=== PATIENT | female | born 1985 | race Hispanic/Latino ===

== ENCOUNTER 2019-05-05 08:29 | Emergency (ER) | payer OTHER ==
[~2019-05-05] VITALS: Ht 152.4 cm; Wt 54.4 kg
== END 2019-05-05 09:01 | disposition home or self-care (01) ==
LOC: ER 08:29
DX: J01.10 Acute frontal sinusitis, unspecified (principal); J30.2 Other seasonal allergic rhinitis; J02.9 Acute pharyngitis, unspecified
CPT/HCPCS: 99282

== ENCOUNTER 2019-10-18 19:47 | Emergency (ER) | payer SELFPAY ==
[~2019-10-18] VITALS: Ht 152.4 cm; Wt 54.4 kg
[2019-10-18] MEDS ORDERED: IBUPROFEN 600 MG TAB PO ONE (20:33)
--- NOTE | 2019-10-18 20:42 | Diagnostic Imaging Report ---
EXAMINATION: CHEST 2 VIEWS INDICATION: Fever, cough. COMPARISON: None FINDINGS: TUBES and LINES: None. LUNGS: Lungs are well inflated. There is no evidence of pneumonia or pulmonary edema. PLEURA: No pleural effusion or pneumothorax. HEART AND MEDIASTINUM: The cardiomediastinal silhouette is unremarkable. BONES AND SOFT TISSUES: No acute osseous abnormality. UPPER ABDOMEN: No free air under the diaphragm. IMPRESSION: No acute thoracic abnormality. Signed by: Dr. Rose Marie Morales MD on 10/18/2019 8:39 PM
[2019-10-18] MEDS ORDERED: DEXAMETHASONE SOD PHOS 10 MG/1 ML VIAL IM ONE (20:45)
[2019-10-18] MEDS ORDERED: ACETAMINOPHEN/CODEINE ELIX 120-12 MG/5 ML UDC PO ONE (20:45)
[2019-10-18] MEDS ORDERED: PENICILLIN G BENZATHINE LA 1.2 MU TBX IM ONE (21:00)
== END 2019-10-18 21:45 | disposition home or self-care (01) ==
LOC: ER 19:47
DX: J02.0 Streptococcal pharyngitis (principal)
CPT/HCPCS: 71046; J0561; J1100

== ENCOUNTER 2021-03-22 19:14 | Emergency (ER) | payer OTHER ==
[~2021-03-22] VITALS: Ht 152.4 cm; Wt 54.4 kg
[2021-03-22] MEDS ORDERED: DEXAMETHASONE SOD PHOS 10 MG/1 ML VIAL IV ONE (19:30)
[2021-03-22] MEDS ORDERED: DEXAMETHASONE SOD PHOS 10 MG/1 ML VIAL ONE (19:41)
[2021-03-22] MEDS ORDERED: ACETAMIN/BUTALBITAL/CAFFEINE TAB ONE (19:44)
[2021-03-22] MEDS ORDERED: ACETAMIN/BUTALBITAL/CAFFEINE TAB PO ONE (19:45)
[2021-03-22 20:14] LABS: STREPTOCOCCUS GRP A ANTIGEN POSITIVE (NEGATIVE)
[2021-03-22 20:23] LABS: INFLUENZAE A&B ANTIGEN (RAPID) NEGATIVE (NEGATIVE)
[2021-03-22] MEDS ORDERED: PENICILLIN G BENZATHINE LA 1.2 MU TBX IM STA (20:47)
== END 2021-03-22 21:22 | disposition home or self-care (01) ==
LOC: ER 19:30
DX: J02.0 Streptococcal pharyngitis (principal); R50.9 Fever, unspecified
CPT/HCPCS: 83518; 87400; 99282; J0561; J1100

== ENCOUNTER 2021-04-10 10:49 | Emergency (ER) | payer SELFPAY ==
[~2021-04-10] VITALS: Ht 152.4 cm; Wt 54.4 kg
[2021-04-10] MEDS ORDERED: FAMOTIDINE 20 MG/2 ML VIAL IV STA (10:54)
[2021-04-10] MEDS ORDERED: METHYLPREDNISOLONE SOD SUCC 125 MG/2ML VIAL IV STA (10:54)
[2021-04-10] MEDS ORDERED: SODIUM CHLORIDE 0.9% 1000ML 1,000 ML IV STA (10:54)
[2021-04-10] MEDS ORDERED: DIPHENHYDRAMINE HCL INJ 50 MG/ML VIAL IV ONE ×2 (11:00→11:15)
[2021-04-10] MEDS ORDERED: DIPHENHYDRAMINE HCL INJ 50 MG/ML VIAL ONE (11:18)
[2021-04-10 13:06] VITALS: BP 108/72
== END 2021-04-10 13:10 | disposition home or self-care (01) ==
LOC: ER 11:17
DX: R21 Rash and other nonspecific skin eruption (principal); L50.9 Urticaria, unspecified
CPT/HCPCS: 99283; J1200; J2930; J7030

== ENCOUNTER 2021-04-15 13:27 | Emergency (ER) | payer OTHER ==
[~2021-04-15] VITALS: Ht 152.4 cm; Wt 54.4 kg
[2021-04-15] MEDS ORDERED: SODIUM CHLORIDE 0.9% 1000ML 1,000 ML IV STA (13:46)
[2021-04-15] MEDS ORDERED: ASPIRIN 81 MG CHEW TAB PO ONE (14:00)
[2021-04-15 14:09] LABS: BASOPHILS % 0.1 % (0.0-1.0); EOSINOPHILS % 0.5 % (0.0-6.0); HEMOGLOBIN 13.7 g/dL (12.0-16.0); LYMPHOCYTES # (AUTO) 1.5 (1.0-3.2); LYMPHOCYTES % 17.2 % (18.0-39.1); MEAN CORPUSCULAR HGB CONC 32.6 g/dL (31-35); MEAN CORPUSCULAR VOLUME 88.8 fL (81-99); MONOCYTES # (AUTO) 0.6 (0.2-0.8); MONOCYTES % 7.2 % (4.4-11.3); NEUTROPHILS # (AUTO) 6.3 (2.1-6.9); NEUTROPHILS % 74.5 % (38.7-80.0); PLATELET COUNT 257 x10e3/uL (140-360); RED BLOOD COUNT 4.73 x10e6/uL (3.6-5.1); RED CELL DISTRIBUTION WIDTH 13.6 % (11.7-14.4)
[2021-04-15 14:28] LABS: ANION GAP 16.8 mmol/L (8-16); BLOOD UREA NITROGEN 11 mg/dL (7-26); BUN/CREATININE RATIO 14 (6-25); CALCIUM 8.7 mg/dL (8.4-10.2); CARBON DIOXIDE 21 mmol/L (22-29); CHLORIDE 104 mmol/L (98-107); CREATINE KINASE 33 IU/L (29-168); CREATININE, SERUM 0.77 mg/dL (0.57-1.11); EST GLOMERULAR FILTRATION RATE > 60 ML/MIN (60-); GLUCOSE 113 mg/dL (74-118); POTASSIUM 3.8 mmol/L (3.5-5.1); SODIUM 138 mmol/L (136-145)
[2021-04-15 14:35] LABS: AMPHETAMINES SCREEN,URINE NEGATIVE (NEGATIVE); BENZODIAZEPINES SCREEN,URINE NEGATIVE (NEGATIVE); PHENCYCLIDINE SCREEN,URINE NEGATIVE (NEGATIVE)
[2021-04-15] MEDS ORDERED: PREDNISONE20 MG PO ×2 (15:49→16:12)
[2021-04-15] MEDS ORDERED: EPIPEN JR0.15 MG/01 IM (16:12)
== END 2021-04-15 16:03 | disposition home or self-care (01) ==
LOC: ER 13:45
DX: R07.89 Other chest pain (principal); L50.9 Urticaria, unspecified
CPT/HCPCS: 36415; 71045; 80048; 80307; 80320; 82550; 82553; 83880; 84484; 85025; 93005; 99284

== ENCOUNTER 2021-11-07 10:49 | Emergency (ER) | payer OTHER ==
[~2021-11-07] VITALS: Ht 152.4 cm; Wt 58.1 kg
[~2021-11-07 10:49] MED LIST: EPIPEN JR0.15 MG/01 IM; PREDNISONE20 MG PO
[2021-11-07 12:20] LABS: STREPTOCOCCUS GRP A ANTIGEN POSITIVE (NEGATIVE)
[2021-11-07] MEDS ORDERED: PENICILLIN G BENZATHINE LA 1.2 MU TBX IM STA (12:41)
== END 2021-11-07 13:52 | disposition home or self-care (01) ==
LOC: ER 11:27
DX: R50.9 Fever, unspecified (principal); J02.0 Streptococcal pharyngitis; M54.9 Dorsalgia, unspecified
CPT/HCPCS: 83518; 99283; J0561; U0002

== ENCOUNTER 2024-07-15 01:24 | Emergency (ER) | payer OTHER ==
[~2024-07-15] VITALS: Ht 152.4 cm; Wt 63.5 kg
[2024-07-15 02:07] LABS: BASOPHILS % 0.4 % (0.0-1.0); EOSINOPHILS # (AUTO) 0.2 (0.0-0.4); EOSINOPHILS % 1.8 % (0.0-6.0); HEMATOCRIT 40.9 % (34.2-44.1); HEMOGLOBIN 13.3 g/dL (12.0-16.0); LYMPHOCYTES # (AUTO) 4.3 (1.0-3.2); MEAN CORPUSCULAR HEMOGLOBIN 29.2 pg (28-32); MEAN CORPUSCULAR HGB CONC 32.5 g/dL (31-35); MEAN CORPUSCULAR VOLUME 89.7 fL (81-99); MONOCYTES # (AUTO) 0.8 (0.2-0.8); MONOCYTES % 7.2 % (4.4-11.3); NEUTROPHILS # (AUTO) 5.4 (2.1-6.9); NEUTROPHILS % 50.3 % (38.7-80.0); PLATELET COUNT 227 x10e3/uL (140-360); RED BLOOD COUNT 4.56 x10e6/uL (3.6-5.1); RED CELL DISTRIBUTION WIDTH 13.4 % (11.7-14.4); WHITE BLOOD COUNT 10.71 x10e3/uL (4.8-10.8)
[2024-07-15 02:12] LABS: BILIRUBIN,URINE NEGATIVE (NEGATIVE); CLARITY,URINE CLEAR (CLEAR); COLOR,URINE YELLOW (YELLOW); GLUCOSE, URINE NEGATIVE (NEGATIVE); KETONES,URINE NEGATIVE (NEGATIVE); LEUKOCYTE ESTERASE ,URINE NEGATIVE (NEGATIVE); NITRITE,URINE NEGATIVE (NEGATIVE); PH,URINE 7 (5 - 7); PROTEIN,URINE DIPSTICK NEGATIVE (NEGATIVE); URINE UROBILINOGEN 0.2 mg/dL (0.2 - 1)
[2024-07-15 02:19] LABS: BACTERIA,URINE MODERATE /HPF; EPITHELIAL CELLS,URINE MANY /LPF; WBC,URINE (MAN) 0-5 /HPF (0-5)
[2024-07-15] MEDS ORDERED: KETOROLAC TROMETHAMINE 30 MG/ML VIAL ONE (02:19)
[2024-07-15 02:23] LABS: ALBUMIN 4.1 g/dL (3.5-5.0); ALBUMIN/GLOBULIN RATIO 1.1 (0.8-2.0); ANION GAP 12.8 mmol/L (8-16); BILIRUBIN,TOTAL 0.2 mg/dL (0.2-1.2); CALCIUM 9.5 mg/dL (8.4-10.2); CREATININE, SERUM 0.81 mg/dL (0.57-1.11); POTASSIUM 3.8 mmol/L (3.5-5.1)
[2024-07-15] MEDS: KETOROLAC TROMETHAMINE 30 MG/ML VIAL IV STA (02:30)
[2024-07-15] MEDS ORDERED: IOPAMIDOL 370 MG/ML 100 ML INFUS..BTL INJ ONE (02:33)
[2024-07-15 04:51] VITALS: PULSE 74; RESP 16; TEMP 98.4
[2024-07-15 04:59] VITALS: BP 101/71; PULSE 74; RESP 16; TEMP 98.4; O2SAT 100
== END 2024-07-15 04:50 | disposition home or self-care (01) ==
LOC: ER 01:30
DX: R10.31 Right lower quadrant pain (principal); R10.2 Pelvic and perineal pain
CPT/HCPCS: 36415; 74177; 76830; 76856; 80053; 81001; 84702; 85025; 99284; J1885; Q9967; 93976